=== PATIENT | male | born 1995 | race African-American/Black ===

== ENCOUNTER 2024-01-17 00:14 | Emergency (ER) | payer SELFPAY ==
[2024-01-17] MEDS ORDERED: Lorazepam 2 MG/ML VIAL ONE (00:53)
[2024-01-17] MEDS ORDERED: Ondansetron PF 4 MG/2 ML Vial ONE (00:53)
[2024-01-17 01:13] LABS: #Basophils 0.03 10x3/uL (0.0-0.2); %Basophils 0.3 % (0.0-1.0); %Eosinophils 0.8 % (0.0-10.0); %Lymphocytes 14.3 % (21.0-51.0); %Monocytes 5.5 % (0.0-10.0); %Neutrophils 78.5 % (42.0-75.0); Hematocrit 41.9 % (42.0-52.0); Hemoglobin 14.3 g/dL (14.0-18.0); Mean Corpuscular HGB CONC 34.1 g/dL (32.0-36.0); Mean Corpuscular Hemoglobin 30.9 pg (27.0-31.0); Mean Corpuscular Volume 90.5 fL (78.0-98.0); Mean Platelet Volume 10.6 fL (7.4-10.4); Platelet Count 213 10x3/uL (130-400); RBC Distribution Width 11.8 % (11.5-14.5); Red Blood Cell (RBC) Count 4.63 mill/uL (4.70-6.10)
[2024-01-17 01:27] LABS: ALT (SGPT) 25 U/L (8-55); AST (SGOT) 21 U/L (5-34); Albumin 3.9 g/dL (3.5-5.0); Alkaline Phosphatase 75 U/L (40-110); Anion Gap 14 mmol/L (10-20); BUN (Urea Nitrogen) 16 mg/dL (8.9-20.6); Bilirubin, Total 0.4 mg/dL (0.2-1.2); Calc. Creatinine Clearance 0 mL/min (70-130); Calcium 8.9 mg/dL (7.8-10.44); Carbon Dioxide 26 mmol/L (22-29); Chloride 101 mmol/L (98-107); Estimated GFR 115; Globulin 3.1 g/dL (2.4-3.5); Glucose 160 mg/dL (70-105); Potassium 3.6 mmol/L (3.5-5.1); Sodium 137 mmol/L (136-145)
[2024-01-17 01:28] LABS: Acetaminophen Less than 10 mcg/mL (Less than 10); Alcohol Less than 10.0 mg/dL (Less than 10); Salicylate Less than 8.0 mg/dL (Less than 8.0)
== END 2024-01-17 02:30 | disposition home or self-care (01) ==
LOC: ERS 00:14
DX: T40.711A Poisoning by cannabis, accidental (unintentional), initial encounter (principal); Z55.6 Problems related to health literacy; Z72.89 Other problems related to lifestyle
CPT/HCPCS: 80053; 80307; 85025; 93005; 96374; 96375; J2060; J2405